=== PATIENT | female | born 1970 | race African-American/Black ===

== ENCOUNTER 2022-08-02 17:09 | Emergency (ER) | payer MEDICAID, OTHER ==
[~2022-08-02] VITALS: Ht 167.6 cm; Wt 104.8 kg
[2022-08-02 17:15] VITALS: BP 137/78
--- NOTE | 2022-08-02 18:00 | NUR ---
SIGNAL MANAGER AT BEDSIDE FOR XRAY
--- NOTE | 2022-08-02 19:28 | NUR ---
[facility] ETA 2 HRS.
--- NOTE | 2022-08-02 21:03 | NUR ---
REPORT GIVEN TO [facility].
== END 2022-08-02 21:30 ==
LOC: ER 17:12
DX: S82.62XD Displaced fracture of lateral malleolus of left fibula, subsequent encounter for closed fracture with routine healing (principal); I10 Essential (primary) hypertension; Z88.8 Allergy status to other drugs, medicaments and biological substances; X58.XXXD Exposure to other specified factors, subsequent encounter
CPT/HCPCS: 73610-TC

== ENCOUNTER 2022-10-22 21:48 | Inpatient (IN) | payer MEDICAID ==
[~2022-10-22] VITALS: Ht 167.6 cm; Wt 113.4 kg
--- NOTE | 2022-10-22 22:42 | NUR ---
EKG AT BEDSIDE
--- NOTE | 2022-10-22 23:06 | NUR ---
PATIENT TO CT SCAN, COVID AND FLU SWAB DONE
--- NOTE | 2022-10-22 23:53 | NUR ---
BLOOD DRAWN AND SENT TO LAB
[2022-10-23 00:21] LABS: BASOPHILS % (AUTO) 0.1 % (0.0-2.0); EOSINOPHILS % (AUTO) 0.8 % (0.0-6.0); HEMATOCRIT 42 % (33-45); HEMOGLOBIN 13.1 g/dL (11.5-14.8); LYMPHOCYTES # (AUTO) 3.8 K/uL (0.8-4.8); LYMPHOCYTES % (AUTO) 38.5 % (20.0-44.0); MEAN CORPUSCULAR HGB CONC 31 g/dl (31.0-36.0); MEAN CORPUSCULAR VOLUME 107 fL (82-100); MONOCYTES # (AUTO) 0.9 K/uL (0.1-1.30); MONOCYTES % (AUTO) 9.4 % (2.0-12.0); NEUTROPHILS # (AUTO) 5.1 K/uL (1.8-8.9); NEUTROPHILS % (AUTO) 51.2 % (43.0-81.0); PLATELET COUNT (AUTO) 158 K/uL (150-450); RED BLOOD CELL COUNT(AUTO) 3.93 MIL/uL (4.0-5.2); WHITE BLOOD COUNT (AUTO) 9.9 K/uL (4.3-11.0)
[2022-10-23 00:35] LABS: MAGNESIUM 2.3 mg/dL (1.8-2.4)
[2022-10-23 00:42] LABS: ALANINE AMINOTRANSFERASE 26 U/L (12-78); ALBUMIN 3.2 g/dL (3.4-5.0); ALKALINE PHOSPHATASE 71 U/L (46-116); ASPARTATE AMINOTRANSFERASE 25 U/L (15-37); BILIRUBIN,DIRECT 0.1 mg/dL (0.0-0.2); BILIRUBIN,TOTAL 0.2 mg/dL (0.2-1.0); CARBON DIOXIDE 35 mmol/L (21-32); CHLORIDE 106 mmol/L (98-107); CREATININE 1.4 mg/dL (0.6-1.3); GLUCOSE 140 mg/dL (74-106); POTASSIUM 4.4 mmol/L (3.5-5.1); SODIUM SERUM 141 mmol/L (136-145); TOTAL PROTEIN, SERUM 7.6 g/dL (6.4-8.2); UREA NITROGEN, BLOOD 22 mg/dL (7-18)
[2022-10-23 00:49] LABS: THYROID STIMULATING HORMONE 21.429 uIU/mL (0.358-3.74)
[2022-10-23 01:20] LABS: BILIRUBIN,URINE NEGATIVE (NEGATIVE); COLOR,URINE YELLOW (YELLOW); LEUKOCYTE ESTERASE ,URINE NEGATIVE (NEGATIVE); NITRITE, URINE NEGATIVE (NEGATIVE); PH,URINE 5.5 (5.0-8.0); PROTEIN,URINE NEGATIVE (NEGATIVE); UGLUCOSE NEGATIVE (NEGATIVE); UROBILINOGEN,URINE 0.2 EU/dL (0.2)
[2022-10-23] MEDS ORDERED: FUROSEMIDE 20 MG/2 ML VIAL IV ONE (01:30)
[2022-10-23] MEDS ORDERED: Z GUARD REMEDY 4 OZ OINT TP PRN (02:00)
[2022-10-23] MEDS ORDERED: MAGNESIUM HYDROXIDE 30 ML UDC PO PRN (02:00)
[2022-10-23] MEDS ORDERED: MORPHINE SULFATE INJ 2 MG/ML DISP.SYRIN IV PRN (02:00)
[2022-10-23] MEDS ORDERED: ASPIRIN 325 MG TABLET PO ONE (02:00)
[2022-10-23] MEDS ORDERED: ONDANSETRON HCL/PF 4 MG/2 ML VIAL IVP PRN (02:00)
[2022-10-23] MEDS ORDERED: ZOLPIDEM TARTRATE 5 MG TABLET PO PRN (02:00)
[2022-10-23] MEDS ORDERED: ACETAMINOPHEN 325 MG TABLET PO PRN (02:00)
[2022-10-23] MEDS ORDERED: HYDROCODONE/APAP 5/325MG TABLET PO PRN (02:00)
[2022-10-23] MEDS ORDERED: MAG HYDROX/AL HYDROX/SIMETH 30 ML UDC PO PRN (02:00)
[2022-10-23] MEDS ORDERED: ASPIRIN 325 MG TABLET ONE (02:26)
[2022-10-23] MEDS ORDERED: FUROSEMIDE 20 MG/2 ML VIAL ONE (02:26)
--- NOTE | 2022-10-23 08:08 | NUR ---
BED 304-1
[2022-10-23] MEDS ORDERED: ACET1TAB23 MT (08:12)
[2022-10-23] MEDS ORDERED: IPRA3AMP23 IH (08:12)
[2022-10-23] MEDS ORDERED: PHEN30TA40 PO (08:12)
[2022-10-23] MEDS ORDERED: MAG30ORA PO (08:12)
[2022-10-23] MEDS ORDERED: CELE200C PO (08:12)
[2022-10-23] MEDS ORDERED: ZINC1CAP3 PO (08:12)
[2022-10-23] MEDS ORDERED: RISP0.2515 PO (08:12)
[2022-10-23] MEDS ORDERED: MULT-447 PO (08:12)
[2022-10-23] MEDS ORDERED: ISOS30TA86 PO (08:12)
[2022-10-23] MEDS ORDERED: ACET-2605 PO (08:12)
[2022-10-23] MEDS ORDERED: ASCO-352 PO (08:12)
[2022-10-23] MEDS ORDERED: LEVO125T8 PO (08:12)
[2022-10-23] MEDS ORDERED: LATA2.5D15 EACHEYE (08:12)
[2022-10-23] MEDS ORDERED: CLOP75TA15 PO (08:12)
[2022-10-23] MEDS ORDERED: CHOL100043 PO (08:12)
[2022-10-23] MEDS ORDERED: DOCU250C14 PO (08:12)
[2022-10-23] MEDS ORDERED: ALBU2.5V38 IH (08:12)
[2022-10-23] MEDS ORDERED: ATOR40TA PO (08:12)
[2022-10-23] MEDS ORDERED: BUDE0.5A IH (08:12)
[2022-10-23] MEDS ORDERED: SERT50TA PO (08:12)
[2022-10-23] MEDS ORDERED: TIZA4TAB5 PO (08:12)
[2022-10-23] MEDS ORDERED: POTA-88 PO (08:12)
[2022-10-23] MEDS ORDERED: CARV12.52 PO (08:12)
[2022-10-23] MEDS ORDERED: INSU100V27 SQ (08:12)
[2022-10-23] MEDS ORDERED: ENOX40DI SQ (08:12)
[2022-10-23] MEDS ORDERED: FURO-144 PO (08:12)
[2022-10-23] MEDS ORDERED: OLAN5TAB3 PO (08:12)
[2022-10-23] MEDS ORDERED: BENA20TA9 PO (08:12)
[2022-10-23] MEDS ORDERED: DIPH25CA51 PO (08:12)
[2022-10-23] MEDS ORDERED: PREG50CA PO (08:12)
--- NOTE | 2022-10-23 08:16 | NUR ---
REPORT GIVEN TO NEHAL DOOLEY OF TELE
--- NOTE | 2022-10-23 08:45 | NUR ---
PT TRANSFERRED TO UNIT VIA LASHAE ACLS PROTOCOL. WARM HANDOFF GIVEN TO RN ASSIGNED.
[2022-10-23 08:50] VITALS: BP 167/88
--- NOTE | 2022-10-23 08:50 | NUR ---
RN NOTE PT ARRIVED FROM ED ADMISSION FOR AMS. MADE COMFORTABLE. BEGIN ADMISSION PROCESS.
--- NOTE | 2022-10-23 08:55 | NUR ---
TELEPHONIC CASE MANAGER NOTE 52 Y/O FEMALE BROUGHT INTO [facility] WITH ADMITTING DIAGNOSIS OF NSTEMI SECONDARY TO CHF. PT IS CONFUSED, ACTIVE BOWEL SOUND. LUNGS CLEAR THROUGH AUSCULTATION. PLACED PATIENT ON NEUROLOGY MANAGER. SKIN ASSESSMENT DONE AND SKIN IS INTACT, WITH LOWER EXTREMITY DRYNESS. PT ON 2L VIA NC, BREATHING EVEN AND NON LABORED. NO DISTRESS OR SOB NOTED AT THIS MOMENT. ORIENTED PATIENT TO ROOM SE UP AND EDUCATED PATIENT ON THE USE OF CALL LIGHT. VS TAKEN, STABLE AND RECORDED. ALL BELONGINGS CHECKED. IV ACCESS AT R AC #20 INTACT AND PATENT, SL. SHE IS COVID NEGATIVE. PRECAUTIONS IN PLACE. BED IN LOWEST AND LOCKED POSITION, HOB ELEVATED. SIDE RAILS UP X2, CALL LIGHT AND TABLE WITHIN REACH. ALL NEED MET AT THIS TIME. WILL CONTINUE TO MONITOR AND ASSIST.
[2022-10-23] MEDS: ASPIRIN 81 MG TAB.CHEW PO SCH (09:36)
[2022-10-23] MEDS: PANTOPRAZOLE 40 MG TABLET.DR PO SCH (09:36)
[2022-10-23] MEDS: FUROSEMIDE 40 MG/4 ML VIAL IV SCH (09:36)
--- NOTE | 2022-10-23 13:50 | NUR ---
RN NOTE- PT AGITATED, GETTING OOB UNASSISTED, RAISING HER VOICE AND ATTEMPTING TO GET OUT OF ROOM AND GO OUTSIDE "TO SMOKE". DISPLAYING PSYCHOSIS AND OPPOSITION TO CARE. PT ON ZYPREXA AT HOME. REELING AND TUBING MACHINE OPERATOR THEO TO SEE PT. ORDERED ZYPREXA ZYDIS 5MG . ADMINISTERED, BED ALARM SET AND PT ON LINE OF SIGHT AT PRESENT.
[2022-10-23] MEDS ORDERED: OLANZAPINE ZYDIS 5 MG TAB.RAPDIS SL ONE (14:00)
[2022-10-23 16:00] VITALS: BP 147/70
[2022-10-23] MEDS ORDERED: risperiDONE 0.25 MG TABLET PO SCH (17:00)
[2022-10-23] MEDS ORDERED: TIZANIDINE HCL 4 MG TABLET PO PRN (17:00)
[2022-10-23] MEDS ORDERED: ACETAMINOPHEN ES 500 MG TABLET PO PRN (17:00)
[2022-10-23] MEDS: PHENOBARBITAL 30 MG TABLET PO SCH (17:41)
[2022-10-23] MEDS: BENAZEPRIL HCL 20 MG TABLET PO SCH (17:42)
[2022-10-23] MEDS: CARVEDILOL 12.5 MG TABLET PO SCH (17:42)
[2022-10-23] MEDS: risperiDONE 1 MG TABLET PO SCH (17:48)
[2022-10-23] MEDS ORDERED: Medication Not On Formulary EA (Ipratropium/Albuterol Sulfate (Duoneb 2.5-0.5 Mg/3 Ml So IH SCH (18:00)
--- NOTE | 2022-10-23 18:55 | NUR ---
RN CLOSING NOTE PATIENT AWAKE IN BED, A/OX1, CONFUSED. NO S/S OF DISTRESS/SOB NOTED. PATIENT ON 2L OXYGEN VIA NC. IV ACCESS: R AC #20G, INTACT AND PATENT. SCHEDULE MEDICATIONS ADMINISTERED. WOUND CARE IMPLEMENTED. FALL AND SAFETY MEASURES IN PLACE: CALL LIGHT AND TABLE WITHIN REACH, SIDE RAILS UP X 2, BED IN LOWEST AND LOCKED POSITION. WILL ENDORSE TO NEXT SHIFT FOR PHU.
[2022-10-23] MEDS: ALBUTEROL FS 2.5 MG/0.5 ML VIAL.NEB NEB SCH (19:30)
[2022-10-23] MEDS: IPRATROPIUM NEB FS 0.5 MG/2.5 ML AMPUL.NEB NEB SCH (19:30)
[2022-10-23 20:30] VITALS: BP 157/75
[2022-10-23] MEDS: BUDESONIDE RESPULE INH 0.5 MG/2 ML AMPUL.NEB IH SCH (21:00)
[2022-10-23] MEDS: ATORVASTATIN 40 MG TABLET PO SCH (21:44)
[2022-10-23] MEDS: OLANZAPINE 5 MG TABLET PO SCH (21:44)
[2022-10-23] MEDS: LATANOPROST EYE DROP 0.005% 2.5 ML BOTTLE EACHEYE SCH (22:13)
[2022-10-24] MEDS ORDERED: OLANZAPINE ZYDIS 5 MG TAB.RAPDIS SL ONE (02:00)
[2022-10-24] MEDS: ALBUTEROL FS 2.5 MG/0.5 ML VIAL.NEB NEB SCH ×4 (02:06→20:35)
[2022-10-24] MEDS: IPRATROPIUM NEB FS 0.5 MG/2.5 ML AMPUL.NEB NEB SCH ×4 (02:06→20:35)
[2022-10-24 05:33] LABS: BASOPHILS % (AUTO) 0.1 % (0.0-2.0); EOSINOPHILS % (AUTO) 0.2 % (0.0-6.0); HEMATOCRIT 44 % (33-45); HEMOGLOBIN 13.9 g/dL (11.5-14.8); LYMPHOCYTES # (AUTO) 2.7 K/uL (0.8-4.8); LYMPHOCYTES % (AUTO) 31.1 % (20.0-44.0); MEAN CORPUSCULAR HGB CONC 32 g/dl (31.0-36.0); MEAN CORPUSCULAR VOLUME 104 fL (82-100); MONOCYTES # (AUTO) 0.7 K/uL (0.1-1.30); MONOCYTES % (AUTO) 8.6 % (2.0-12.0); NEUTROPHILS # (AUTO) 5.2 K/uL (1.8-8.9); PLATELET COUNT (AUTO) 163 K/uL (150-450); WHITE BLOOD COUNT (AUTO) 8.7 K/uL (4.3-11.0)
[2022-10-24 05:49] LABS: CALCIUM, SERUM 9.4 mg/dL (8.5-10.1); CREATININE 0.9 mg/dL (0.6-1.3); MAGNESIUM 2.1 mg/dL (1.8-2.4); PHOSPHORUS 2.1 mg/dL (2.5-4.9); POTASSIUM 3.6 mmol/L (3.5-5.1)
--- NOTE | 2022-10-24 06:13 | NUR ---
END OF SHIFT NOTES Stable on room air, Oxygen saturation 96%, observed no SOB with ambulation. Patient Alert Oriented x1. Restless and uncooperative at times. Impulsive, getting out from bed unassisted. Pulled out IV line by herself, unable to educate, patient confused. Sinus Rhythm APacing the Tele monitor HR 72. Slowly calm down with Zyprexa and able to sleep with Ambien. Agitated at times, Zyprexa PO SL one time was ordered. Will endorse to oncoming RN. Sitter at bedside.
--- NOTE | 2022-10-24 07:45 | NUR ---
RN OPENING NOTE PATIENT IN BED SLEEPING BUT EASY TO AROUSED. A/OX1. NO S/S OF SOB NOTED AT THIS TIME. BREATHING EVEN AND NON LABORED. PATIENT IS CONFUSED, SITTER BY BEDSIDE. NO IV ACCESS. SAFETY MEASURES IMPLEMENTED: CALL LIGHT AND TABLE WITHIN REACH, HOB ELEVATED, SIDE RAILS UP X 2, BED IN LOWEST AND LOCKED POSITION. WILL CONTINUE TO MONITOR AND ASSIST PATIENT.
[2022-10-24] MEDS: risperiDONE 1 MG TABLET PO SCH ×2 (08:25→16:52)
[2022-10-24] MEDS: ISOSORBIDE MONONITRATE (30MG) 30 MG TAB.SR.24H PO SCH (08:26)
[2022-10-24] MEDS: SERTRALINE HCL 50 MG TABLET PO SCH (08:26)
[2022-10-24] MEDS: MULTIVIT W/MINERALS 1 TAB TABLET PO SCH (08:26)
[2022-10-24] MEDS: PHENOBARBITAL 30 MG TABLET PO SCH ×2 (08:26→16:53)
[2022-10-24] MEDS: CLOPIDOGREL BISULFATE 75 MG TABLET PO SCH (08:26)
[2022-10-24] MEDS: PREGABALIN 25 MG CAPSULE PO SCH ×2 (08:27→16:53)
[2022-10-24] MEDS: BENAZEPRIL HCL 20 MG TABLET PO SCH ×2 (08:27→16:52)
[2022-10-24] MEDS: ASCORBIC ACID 500 MG TABLET PO SCH (08:27)
[2022-10-24] MEDS: BUDESONIDE RESPULE INH 0.5 MG/2 ML AMPUL.NEB IH SCH ×2 (08:28→21:04)
[2022-10-24] MEDS: ZINC SULFATE 220 MG CAPSULE PO SCH (08:28)
[2022-10-24] MEDS: PANTOPRAZOLE 40 MG TABLET.DR PO SCH (08:28)
[2022-10-24] MEDS: CARVEDILOL 12.5 MG TABLET PO SCH ×2 (08:28→16:53)
[2022-10-24] MEDS: LEVOTHYROXINE SODIUM 125 MCG TABLET PO SCH (08:29)
[2022-10-24] MEDS: ASPIRIN 81 MG TAB.CHEW PO SCH (08:29)
[2022-10-24] MEDS: FUROSEMIDE 40 MG/4 ML VIAL IV SCH (08:34)
[2022-10-24] MEDS: ENOXAPARIN SODIUM 40 MG/0.4 ML DISP.SYRIN SQ SCH (08:34)
[2022-10-24] MEDS ORDERED: POTASSIUM CHLORIDE 10 MEQ TABLET.SA PO SCH (09:00)
--- NOTE | 2022-10-24 09:15 | NUR ---
WOUND CARE CONSULT: PT PRESENTS WITH REDNESS TO RT LOWER LEG AND SCALY, PEELING SKIN TO BILATERAL LOWER LEGS AND FEET, PRESENT ON ADMISSION. DR ZEPEDA CALLED FOR DPM CONSULT.
[2022-10-24] MEDS ORDERED: FUROSEMIDE 40 MG/4 ML VIAL IV SCH (09:30)
[2022-10-24 09:55] LABS: ABG BASE EXCESS 2.7 mmol/L; ABG OXYGEN SATURATION 94.8 % (92.0-98.5); ABG PCO2 63.1 mmHg (35.0-45.0); ABG PH 7.306 (7.350-7.450); ABG PO2 80.2 mmHg (75.0-100.0); AaDO2 74.1 mmHg; COHb 1.1 % (0.5-1.5); MetHb 0.2 % (0.0-1.5); O2Hb 93.6 % (94.0-97.0); SITE, ABG Right Radial; VENT MODE, BG Nasal Cannula
--- NOTE | 2022-10-24 09:55 | NUR ---
RN NOTE RECEIVED CRITICAL LAB FROM DELILAH FOR TROPONIN OF [address] @[address]. [address] STOCKTON MADE AWARE @0961. NO CHANGES.
[2022-10-24] MEDS: POTASSIUM CHLORIDE 20 MEQ TAB.PRT.SR PO SCH ×2 (10:12→11:36)
[2022-10-24] MEDS ORDERED: K PHOS NEUTRAL 250 MG TABLET PO ONE (12:00)
[2022-10-24] MEDS: AMMONIUM LACTATE 227 GM BOTTLE TP SCH (16:52)
--- NOTE | 2022-10-24 18:50 | NUR ---
RN CLOSING NOTE PATIENT ASLEEP IN BED, EASY TO AROUSED. A/OX1, CONFUSED. NO S/S OF DISTRESS/SOB NOTED. PATIENT ON 2L OXYGEN VIA NC. NO SIGN OF SOB/DISTRESS NOTED, NO COMPLAIN OF PAIN/DISCOMFORT DURING SHIFT. PATIENT REFUSED EXTERNAL ANIMAL MAINTENANCE SUPERVISOR. IV ACCESS: GUY #18G, INTACT AND PATENT. SCHEDULE MEDICATIONS ADMINISTERED. WOUND CARE IMPLEMENTED. FALL AND SAFETY MEASURES IN PLACE: CALL LIGHT AND TABLE WITHIN REACH, SIDE RAILS UP X 2, BED IN LOWEST AND LOCKED POSITION. WILL ENDORSE TO NEXT SHIFT.
--- NOTE | 2022-10-24 19:30 | NUR ---
RN OPENING NOTE PATIENT IS A/O X 1 AT THIS TIME, PATIENT SLEEPY. AWAKENS WITH VERBAL AND TOUCH STIMULI. PATIENT ON 2LPM VIA NC, TOLERATING WELL. LEFT ARM IV ACCESS PATENT AND INTACT. PATIENT DOES NOT REPORT ANY PAIN AT THIS TIME. SAFETY MEASURES IN PLACE: BED LOCKED AND IN LOWEST POSITION, CALL LIGHT WITHIN REACH, SIDE RAILS UP. 1:1 SITTER PRESENT AT BEDSIDE. WILL MONITOR PATIENT CLOSELY.
[2022-10-24 20:00] VITALS: BP 122/64
--- NOTE | 2022-10-24 20:30 | NUR ---
RT CHANCE PUT PATIENT ON BIPAP, PT COOPERATIVE AT THIS TIME.
[2022-10-24 20:31] LABS: ABG OXYGEN SATURATION 92.1 % (92.0-98.5); ABG PCO2 66.5 mmHg (35.0-45.0); ABG PO2 67.6 mmHg (75.0-100.0); AaDO2 53.6 mmHg; COHb 1.2 % (0.5-1.5); MetHb 0.2 % (0.0-1.5); O2Hb 90.8 % (94.0-97.0); SITE, ABG Right Radial
--- NOTE | 2022-10-24 20:35 | NUR ---
RT Pt placed on ordered NOC BIPAP on settings IPAP 18, EPAP 12, back up rate 16, FIO2 35% via M sized full mask w/ mepilex. RN aware. Sitter at bedside. Will cont to monitor. Addendum: 10/25/22 at 0613 by CHANCE RAMIREZ RT Amended: Links added.
[2022-10-24] MEDS: OLANZAPINE 5 MG TABLET PO SCH (21:40)
[2022-10-24] MEDS: LATANOPROST EYE DROP 0.005% 2.5 ML BOTTLE EACHEYE SCH (21:41)
[2022-10-24] MEDS: ATORVASTATIN 40 MG TABLET PO SCH (21:41)
--- NOTE | 2022-10-25 | NUR ---
PATIENT REFUSED VITAL SIGNS TO BE TAKEN. EXPLAINED TO PATIENT THE IMPORTANCE OF TAKING HER VITAL SIGNS, PATIENT CONTINUES TO REFUSE AND HIDES ARMS UNDER THE BLANKET. PATIENT ALSO REFUSES TO PUT TELE MONITOR ON. WILL TRY AGAIN AT A LATER TIME
[2022-10-25] MEDS: IPRATROPIUM NEB FS 0.5 MG/2.5 ML AMPUL.NEB NEB SCH ×4 (01:44→21:11)
[2022-10-25] MEDS: ALBUTEROL FS 2.5 MG/0.5 ML VIAL.NEB NEB SCH ×4 (01:44→19:30)
[2022-10-25 04:00] VITALS: BP 112/73
--- NOTE | 2022-10-25 05:40 | NUR ---
RT Pt removed from BIPAP per Pt request at 0540. Pt placed on nasal cannula on 2LPM O2
--- NOTE | 2022-10-25 07:20 | NUR ---
RN CLOSING NOTE PATIENT NOT IN ANY APPARENT DISTRESS. TOLERATING 2 LPM VIA NASAL CANNULA. ALL NEEDS MET AND ATTENDED. ALL ORDERS CARRIED OUT. ENDORSED TO DAY SHIFT NURSE FOR PHU.
--- NOTE | 2022-10-25 07:30 | NUR ---
SALES TRAINING REPRESENTATIVE OPENING NOTE RECEIVED PT ASLEEP IN BED, EASILY AROUSED. PT A/O X1, WITH EPISODES OF CONFUSION. REORIENTED PT NEEDED. ON O2 AT 2/MIN VIA NASAL CANNULA, TOLERATING WELL. NO SOB NOTED. NOT IN ANY SIGN OF RESPIRATORY DISTRESS. PT REFUSED THE TELE SHAKER OUT, EXPLAINED THE RISK AND BENEFITS STILL REFUSED. TELE BOX WAS GIVEN TO THE POLISHER DIAL, ANA. IV ACCESS IN GUY G#18 INTACT AND PATENT. SAFETY MEASURES IN PLACE: BED IN LOWEST AND LOCKED POSITION, SIDE RAILS UPX2, AND CALL LIGHT WITHIN REACH. WILL CONTINUE TO MONITOR PT.
[2022-10-25] MEDS: BUDESONIDE RESPULE INH 0.5 MG/2 ML AMPUL.NEB IH SCH ×2 (07:32→21:12)
[2022-10-25] MEDS: LEVOTHYROXINE SODIUM 125 MCG TABLET PO SCH (08:28)
[2022-10-25] MEDS: PANTOPRAZOLE 40 MG TABLET.DR PO SCH (08:28)
--- NOTE | 2022-10-25 08:35 | NUR ---
RN NOTE PT SEEN BY DR. GONZALEZ WITH ORDERS TO DO [facility]. ORDERS CARRIED OUT.
[2022-10-25] MEDS: ENOXAPARIN SODIUM 40 MG/0.4 ML DISP.SYRIN SQ SCH ×2 (09:00→09:15)
[2022-10-25] MEDS: ASPIRIN 81 MG TAB.CHEW PO SCH (09:08)
[2022-10-25] MEDS: PHENOBARBITAL 30 MG TABLET PO SCH (09:08)
[2022-10-25] MEDS: ZINC SULFATE 220 MG CAPSULE PO SCH (09:09)
[2022-10-25] MEDS: CLOPIDOGREL BISULFATE 75 MG TABLET PO SCH (09:09)
[2022-10-25] MEDS: SERTRALINE HCL 50 MG TABLET PO SCH (09:09)
[2022-10-25] MEDS: PREGABALIN 25 MG CAPSULE PO SCH ×2 (09:09→17:43)
[2022-10-25] MEDS: MULTIVIT W/MINERALS 1 TAB TABLET PO SCH (09:09)
[2022-10-25] MEDS: ASCORBIC ACID 500 MG TABLET PO SCH (09:09)
[2022-10-25] MEDS: risperiDONE 1 MG TABLET PO SCH ×2 (09:10→17:43)
[2022-10-25] MEDS: ISOSORBIDE MONONITRATE (30MG) 30 MG TAB.SR.24H PO SCH (09:10)
[2022-10-25] MEDS: CARVEDILOL 12.5 MG TABLET PO SCH ×2 (09:11→17:44)
[2022-10-25] MEDS: AMMONIUM LACTATE 227 GM BOTTLE TP SCH ×2 (09:12→17:44)
[2022-10-25] MEDS: BENAZEPRIL HCL 20 MG TABLET PO SCH ×2 (09:12→17:43)
--- NOTE | 2022-10-25 09:15 | NUR ---
PT REFUSED TO TO PLACED BACK ON HER OXYGEN AND REFUSED ARTERIAL BLOOD GAS Addendum: 10/25/22 at 0916 by KELLEN SPANGLER RT Amended: Links added.
--- NOTE | 2022-10-25 09:53 | NUR ---
RN NOTE PT REFUSED HER LOVENOX MEDICATION SCHEDULED AT 0900. EXPLAINED RISK AND BENEFITS X3, PT STILL REFUSED.
--- NOTE | 2022-10-25 19:17 | NUR ---
HUMAN CAPITAL CONSULTANT CLOSING NOTE PT ASLEEP IN BED, EASILY AROUSED. PT A/O X1, WITH EPISODES OF CONFUSION. REORIENTED PT NEEDED. ON ROOM AIR, TOLERATING WELL WITH SPO2 92%-93%. PT REFUSED O2 VIA NASAL CANNULA AT THIS TIME. NO SOB NOTED. PT NOT IN ANY SIGN OF RESPIRATORY DISTRESS. PT STILL REFUSES THE TELE FACE AND FILL PACKER, EXPLAINED THE RISK AND BENEFITS STILL REFUSED. TELE BOX REMAINS WITH THE RN MIDWIFE, ANA. IV ACCESS IN GUY G#18 INTACT AND PATENT. ALL NEEDS ATTENDED. KEPT CLEAN AND COMFORTABLE. SAFETY MEASURES IN PLACE: BED IN LOWEST AND LOCKED POSITION, SIDE RAILS UPX2, AND CALL LIGHT WITHIN REACH. ENDORSED TO [employer]ICAN FOOD MAKER HAND NURSE FOR PHU.
--- NOTE | 2022-10-25 19:30 | NUR ---
CHEMICAL CHECKER OPENING NOTE RECEIVED PATIENT IN BED, ALERT AND ORIENTED X 1 WITH SITTER AT BEDSIDE. ABLE TO MAKE NEEDS KNOWN. AFEBRILE AND NOT IN ANY FORM OF ACUTE DISTRESS. BREATHING EVEN AND NON LABORED. NO C/O PAIN OR DISCOMFORT AT THIS TIME. WITH IV ACCESS ON GUY 18G-SL. SAFETY MEASURES IN PLACE. KEPT BED IN LOCKED AND IN LOW POSITION. SIDE RAILS UP X2. ADVISED TO USE THE CALL LIGHT WHEN IN NEED OF ASSISTANCE.
[2022-10-25] MEDS: ATORVASTATIN 40 MG TABLET PO SCH (21:41)
[2022-10-25] MEDS: LATANOPROST EYE DROP 0.005% 2.5 ML BOTTLE EACHEYE SCH (21:41)
[2022-10-25] MEDS: OLANZAPINE 5 MG TABLET PO SCH (21:41)
[2022-10-26 00:24] VITALS: BP 120/69
[2022-10-26] MEDS: IPRATROPIUM NEB FS 0.5 MG/2.5 ML AMPUL.NEB NEB SCH ×3 (01:20→14:26)
[2022-10-26] MEDS: ALBUTEROL FS 2.5 MG/0.5 ML VIAL.NEB NEB SCH ×3 (01:30→13:30)
[2022-10-26 04:00] VITALS: BP 105/65
--- NOTE | 2022-10-26 06:05 | NUR ---
Pt recvd awake on room air, neb tx given and pt dwight well. Pt placed on bipap with ordered settings, alarms on and audible. Mepilex skin barrier in place. No SOB or respiratory distress noted throughout shift.
--- NOTE | 2022-10-26 06:30 | NUR ---
INSTRUCTOR HAIRSPRING CLOSING NOTE PATIENT IN BED, ASLEEP BUT EASY TO AROUSE AND RESPONSIVE. SITTER AT BEDSIDE. ABLE TO MAKE NEEDS KNOWN. AFEBRILE AND NOT IN ANY FORM OF ACUTE DISTRESS. BREATHING EVEN AND NON LABORED. ON BIPAP THROUGHOUT THE NIGHT. WITH IV ACCESS ON GUY 18G-SL. MEDICATED ORDERED. ENCOURAGED TO TURN AND REPOSITION EVERY 2 HOURS AND TOLERATED TO PROMOTE PROPER CIRCULATION AND COMFORT. SAFETY MEASURES IN PLACE. KEPT BED IN LOCKED AND IN LOW POSITION. SIDE RAILS UP X2. ADVISED TO USE THE CALL LIGHT WHEN IN NEED OF ASSISTANCE. ALL NURSING NEEDS ATTENDED. ENDORSED TO INCOMING SHIFT FOR CONTINUITY OF CARE.
[2022-10-26 07:45] LABS: CALCIUM, SERUM 9.9 mg/dL (8.5-10.1); CREATININE 1.3 mg/dL (0.6-1.3); POTASSIUM 3.7 mmol/L (3.5-5.1)
[2022-10-26 08:00] VITALS: BP 134/74
[2022-10-26 08:05] VITALS: BP 150/79
--- NOTE | 2022-10-26 08:17 | NUR ---
DR. RESENDEZ CLEARED PT FOR DISCHARGE
[2022-10-26] MEDS: ASCORBIC ACID 500 MG TABLET PO SCH (08:41)
[2022-10-26] MEDS: CLOPIDOGREL BISULFATE 75 MG TABLET PO SCH (08:41)
[2022-10-26] MEDS: LEVOTHYROXINE SODIUM 125 MCG TABLET PO SCH (08:41)
[2022-10-26] MEDS: BENAZEPRIL HCL 20 MG TABLET PO SCH (08:42)
[2022-10-26 08:43] VITALS: BP 134/74
[2022-10-26] MEDS: ASPIRIN 81 MG TAB.CHEW PO SCH (08:43)
[2022-10-26] MEDS: ISOSORBIDE MONONITRATE (30MG) 30 MG TAB.SR.24H PO SCH (08:43)
[2022-10-26] MEDS: CARVEDILOL 12.5 MG TABLET PO SCH (08:43)
[2022-10-26] MEDS: MULTIVIT W/MINERALS 1 TAB TABLET PO SCH (08:43)
[2022-10-26] MEDS: ENOXAPARIN SODIUM 40 MG/0.4 ML DISP.SYRIN SQ SCH (08:49)
[2022-10-26] MEDS: PANTOPRAZOLE 40 MG TABLET.DR PO SCH (08:49)
[2022-10-26] MEDS: AMMONIUM LACTATE 227 GM BOTTLE TP SCH (09:00)
[2022-10-26] MEDS: BUDESONIDE RESPULE INH 0.5 MG/2 ML AMPUL.NEB IH SCH ×2 (09:00→11:07)
[2022-10-26] MEDS ORDERED: PHENOBARBITAL 30 MG TABLET PO SCH (09:00)
--- NOTE | 2022-10-26 10:00 | NUR ---
CHAIN REPAIRER NOTE SEEN BY DR. RESENDEZ WITH ORDERS FOR DISCHARGE ONCE CLEARED BY DR. CARLOS OHARA. IN STABLE CONDITION.
[2022-10-26 10:54] LABS: ABG BASE EXCESS 6.6 mmol/L; ABG OXYGEN SATURATION 89.1 % (92.0-98.5); ABG PCO2 46.7 mmHg (35.0-45.0); ABG PH 7.449 (7.350-7.450); ABG PO2 54.7 mmHg (75.0-100.0); AaDO2 39.1 mmHg; MetHb 0.2 % (0.0-1.5); SITE, ABG Right Radial; VENT MODE, BG ROOM AIR
[2022-10-26] MEDS: risperiDONE 1 MG TABLET PO SCH (10:54)
[2022-10-26] MEDS: PREGABALIN 25 MG CAPSULE PO SCH (10:54)
[2022-10-26] MEDS: SERTRALINE HCL 50 MG TABLET PO SCH (10:54)
--- NOTE | 2022-10-26 10:55 | NUR ---
RT NOTE: ABG RESULTS REPORTED TO DR. GONZALEZ. PATIENT PLACED ON 1LPM VIA NASAL CANNULA PER .
[2022-10-26] MEDS: ZINC SULFATE 220 MG CAPSULE PO SCH (10:56)
--- NOTE | 2022-10-26 12:54 | NUR ---
SURFBOARD MAKERLETTERPRESS PRINTING MACHINIST NOTES PATIENT ENDORSED TO SNF. CLEANED AND IV ACCESS REMOVED. INSTRUCTED TO BE ON OXYGEN 1L. AFEBRILE AND NOT IN ANY FORM OF ACUTE DISTRESS. BREATHING EVEN AND NON LABORED. LUNG SOUND CLEAR ON AUSCULTATION. NO C/O OF PAIN OR DISCOMFORT THROUGH OUT THE SHIFT.. KEPT CLEAN AND DRY. PATIENT IN BED, ASLEEP BUT EASY TO AROUSE AND RESPONDS TO VERBAL AND TACTILE STIMULI. SITTER AT BEDSIDE. ABLE TO COMMUNICATE NEEDS WITH THE STAFFS. AFEBRILE AND NOT IN ANY FORM OF ACUTE DISTRESS. BREATHING EVEN AND NON LABORED. LUNG SOUNDS CLEAR ON AUSCULTATION. ON TELE MONITORING WITH CURRENT READING OF SR 95 WIT ELEVATED T WAVE. NO C/O PAIN OR DISCOMFORT THROUGHOUT THE SHIFT. WITH IV ACCESS ON LAC 18G RUNNING WITH NS AT 75ML/HR. TURNED AND REPOSITIONED EVERY 2 HOURS AND TOLERATED. KEPT CLEAN AND DRY. WOUND CARE DONE DURING THE SHIFT. SAFETY MEASURES IN PLACE. KEPT BED IN LOCKED AND IN LOW POSITION. SIDE RAILS UP X2. ADVISED TO USE THE CALL LIGHT WHEN IN NEED OF ASSISTANCE. ALL NURSING NEEDS ATTENDED. ENDORSED TO INCOMING SHIFT FOR CONTINUITY OF CARE. Addendum: 10/26/22 at 1647 by AUSTYN CRAVEN RN WRONG ENTRY
--- NOTE | 2022-10-26 13:10 | NUR ---
INSERTER NOTE SEEN BY DR. GONZALEZ WITH ORDER TO DO ABG'S. RESULTS RELAYED TO DR. GONZALEZ. MD CLEARED PATIENT FOR DISCHARGE. TRANSPORTATION TO BE ARRANGED BY SMALL PACKAGE AND BUNDLE SORTER CLERK. PATIENT AWARE OF DISCHARGE. HEALTH TEACHING DONE REGARDING DISCHARGE AND DISCHARGE ORDERS. VERBALIZED UNDERSTANDING AND APPRECIATION. IN STABLE CONDITION.
--- NOTE | 2022-10-26 13:20 | NUR ---
PLUG SORTER OPENING NOTES RECEIVED PATIENT IN BED AWAKE AND ORIENTED. ABLE TO MAKE NEEDS KNOWN. NO PAIN OR DISCOMFORT AT THIS TIME. AFEBRILE AND NOT IN ANY FORM OF ACUTE DISTRESS. BREATHING EVEN AND NON LABORED. PATIENT WITH IV ACCESS ON GUY 18G-SL. MEDICATED ORDERED. ENCOURAGED TO TURN AND REPOSITION EVERY 2 HOURS AND TOLERATED TO PROMOTE PROPER CIRCULATION AND COMFORT. SAFETY MEASURES GIVEN WITH BED IN LOCKED AND LOW POSITION. SIDE RAILS UP X2. ADVISED TO USE THE CALL LIGHT WITHIN REACH AT ALL TIMES. WILL CONTINUE PLAN OF CARE. Addendum: 10/26/22 at 1646 by AUSTYN CRAVEN RN OPENING NOTE FOR 7:30 AM
--- NOTE | 2022-10-26 15:00 | NUR ---
BAG BAILERBAROMETERS CALIBRATOR NOTES PATIENT DISCHARGED IN STABLE CONDITION, A/O X 2, VITAL SIGNS TAKEN, STABLE AND RECORDED. PT ENDORSED TO SNF. PICTURES TAKEN AND FILED. IV ACCESS REMOVED. INSTRUCTED TO BE ON OXYGEN 1L. BREATHING EVEN AND NON LABORED. LUNG SOUND CLEAR ON AUSCULTATION. NO C/O OF PAIN OR DISCOMFORT THROUGH OUT THE SHIFT. KEPT CLEAN AND DRY. PT LEFT UNIT VIA GURNEY WITH NO SIGNS OF DISTRESS.
== END 2022-10-26 16:00 | DRG 194 ==
LOC: ER 21:50 → TELE 10-23 08:33
PROVIDERS: ADMIT Nurse Practitioner Acute Care
DX: I11.0 Hypertensive heart disease with heart failure (principal); J96.21 Acute and chronic respiratory failure with hypoxia; I21.A1 Myocardial infarction type 2; G93.41 Metabolic encephalopathy; J96.22 Acute and chronic respiratory failure with hypercapnia; I50.33 Acute on chronic diastolic (congestive) heart failure; E11.65 Type 2 diabetes mellitus with hyperglycemia; E66.2 Morbid (severe) obesity with alveolar hypoventilation; G40.909 Epilepsy, unspecified, not intractable, without status epilepticus; L85.3 Xerosis cutis; Z95.810 Presence of automatic (implantable) cardiac defibrillator; G47.33 Obstructive sleep apnea (adult) (pediatric); E03.9 Hypothyroidism, unspecified; Z91.14 Patient's other noncompliance with medication regimen; E78.5 Hyperlipidemia, unspecified; Z68.41 Body mass index [BMI] 40.0-44.9, adult; Z20.822 Contact with and (suspected) exposure to COVID-19
CPT/HCPCS: 36415; 36600; 70450-TC; 71045-TC; 80048-TC; 80061-TC; 80076-TC; 82550-TC; 82803-TC; 82962-TC; 83735-TC; 83880; 84100-TC; 84439-TC; 84443-TC; 84484-TC; 85025-TC; 87081-TC; 87086-TC; 93307-TC; 94799-TC; 97116-TC; 97530-TC; 97535-TC; C9803; G0378; J1650; J1940